=== PATIENT | male | born 1945 | race Caucasian/White ===

== ENCOUNTER 2025-04-07 06:55 | Day surgery (SDC) | payer MEDICARE, BC ==
[2025-04-07] VITALS (11 sets, daily range): BP systolic 98–161; BP diastolic 59–93; PULSE 40–100; RESP 14–20; TEMP 97.5; O2SAT 94–98
[~2025-04-07] VITALS: Ht 182.9 cm; Wt 99.2 kg
[~2025-04-07 06:55] MED LIST: ASPI-12 PO; NEBI5TAB9 PO; TAMS-55 PO; VITC500T PO
[2025-04-07] MEDS ORDERED: normal saline 1000ml 1,000 ML IV SCH (07:20)
[2025-04-07] MEDS ORDERED: fentaNYL/PF 50MCG/1 ML 2ML syringe IV ONE (07:20)
[2025-04-07] MEDS ORDERED: glycopyrrolate 0.2mg/ml inj IV ONE (07:20)
[2025-04-07] MEDS ORDERED: MIDAZolam 1mg/ml 10ml vial IV ONE (07:20)
[2025-04-07] MEDS ORDERED: NEBI10TA10 PO (07:28)
--- NOTE | 2025-04-07 07:28 | ELECTROCARDIOGRAPH REPORT ---
[facility] Test Date: 2025-04-07 Test Time: 07:24:15 Pat Name: CHENCHO ARRIAZA Department: [facility] Patient ID: [facility]-[id number] Room: Gender: M Territory Sales Representative: : 1945 Requested By: JINA HEARN Order Number: [id number] Reading MD: Dr. TONI Freeman Measurements Intervals [place] Rate: 101 P: 0 [place]: 0 QRS: -65 QRSD: 154 T: 43 QT: 391 QTc: 507 Interpretive Statements Atrial fibrillation RBBB and LAFB Probable left ventricular hypertrophy Electronically Signed On 04-07-2025 18:04:[address] TONI Freeman Please click the below link to view image of tracing.
[2025-04-07 08:13] LABS: MEAN PLATELET VOLUME 8.1 FL (7.4-10.4); RED CELL DISTRIBUTION WIDTH 14.4 % (11.5-14.5)
[2025-04-07 08:16] LABS: INR 1.1 INR
[2025-04-07 08:21] LABS: CREATININE 0.90 MG/DL (0.60-1.10); TOTAL CARBON DIOXIDE 26.9 MMOL/L (24-32); eCRCL 71 ML/MIN; eGFR 81 ML/MIN
[2025-04-07] MEDS: normal saline 1000ml 1,000 ML IV SCH (09:13)
[2025-04-07] MEDS: normal saline 1000ML IV soln IVB ONE (09:13)
[2025-04-07] MEDS ORDERED: midazolam 1 mg/ML 2ml injection ONE ×3 (09:21→10:50)
[2025-04-07] MEDS ORDERED: amiodarone 50MG/ML inj IV ONE (09:21)
[2025-04-07] MEDS ORDERED: atropine 0.1mg/ml 10ml syringe ONE (09:22)
[2025-04-07] MEDS ORDERED: fentaNYL/PF 50MCG/1 ML 2ML syringe ONE (09:22)
[2025-04-07 10:57] LABS: MONOCYTES % (MANUAL) 2.0 % (2-12); NEUTROPHILS % (MANUAL) 20.0 % (42-75); PLATELET ESTIMATE DECREASED
[2025-04-07] MEDS ORDERED: amiodarone/D5 360MG/200ML BAG 200 ML IV ONE (11:03)
[2025-04-07] MEDS ORDERED: amiodarone 150mg/dext, iso-os 100 ML IV ONE ×2 (11:10→11:12)
[2025-04-07] MEDS: magnesium sulf-water 2g/50mL 50 ML IV ONE (11:30)
--- NOTE | 2025-04-07 11:47 | CARDIOLOGY REPORT ---
DATE OF SERVICE: 04/07/2025 DICTATING PHYSICIAN: JINA HEARN DO PROCEDURE: DC cardioversion. PREPROCEDURAL DIAGNOSIS: Atrial fibrillation. POSTPROCEDURAL DIAGNOSIS: Atrial fibrillation cardioverted to sinus rhythm. DESCRIPTION OF PROCEDURE: The patient was sedated with fentanyl and Versed. He was then given one 200 joule shock resulting in conversion to sinus rhythm. COMPLICATIONS: There were no complications. PLAN: Ongoing medical therapy. FINAL DIAGNOSIS: Atrial fibrillation cardioverted to sinus rhythm. JINA HEARN DO TID: [id number] RECEIPT: [id number] /DEVANG
--- NOTE | 2025-04-07 12:11 | ELECTROCARDIOGRAPH REPORT ---
[facility] Test Date: 2025-04-07 Test Time: 12:07:36 Pat Name: CHENCHO ARRIAZA Department: [facility] Patient ID: [facility]-[id number] Room: Gender: M Account Liaison: DIGNA : 1945 Requested By: JINA HEARN Order Number: [id number] Reading MD: Dr. TONI Freeman Measurements Intervals [place] Rate: 41 P: 118 MI: 130 QRS: -51 QRSD: 158 T: -58 QT: 523 QTc: 432 Interpretive Statements Sinus bradycardia Right bundle branch block LVH with IVCD and secondary repol abnrm ST depr, consider ischemia, inferior leads Electronically Signed On 04-07-2025 18:05:[address] TONI Freeman Please click the below link to view image of tracing.
[2025-04-07] MEDS ORDERED: AMIO200T76 PO (12:12)
--- NOTE | 2025-04-07 14:27 | RADIOLOGY REPORT ---
Indication: gross hematuria; urogram/evaluate renal bladder Technique: CT axial images of the abdomen and pelvis are obtained with and without intravenous contrast. Coronal and sagittal reformats were obtained. Radiation Dose Information: CTDI volume is 31 mGy. Dose-length product is 4298 mGy*cm Comparison: None FINDINGS: Lung bases demonstrate atelectasis. Adrenal glands, spleen, pancreas unremarkable. No enhancing hepatic lesion. No CT evidence for cholelithiasis. The kidneys demonstrate no hydronephrosis, nephrolithiasis. Right renal cysts measuring 3.1 cm. Left renal peripelvic cysts. Stomach is partially distended. Small bowel loops are normal in caliber. Colonic diverticular disease. Moderate volume stool in the colon. No secondary signs for appendicitis. Abdominal aortic atherosclerotic disease. No retroperitoneal lymphadenopathy. Bladder partially distended. On the delayed views, there is a filling defect within the bladder. There is irregularity of the posterior bladder wall. Prostate measures 6.2 cm transversely. There appears to be contrast external to the prostatic urethra on the delayed urogram images. No free pelvic fluid. No inguinal lymphadenopathy. Small bilateral fat containing inguinal hernias. Moderate bilateral sacroiliac degenerative joint disease. Moderate to severe lumbar degenerative disc disease most pronounced at L5-S1. IMPRESSION: No hydronephrosis/ nephrolithiasis. Filling defect within the bladder as well as the right posterior bladder wall on the delayed urogram images. Recommend urology consultation for cystoscopy to exclude hematoma/ hemorrhage, mass and other lesions. Prostatomegaly. There is also contrast percolating outside the prostatic urethra. Recommend urology consultation for further evaluation. Aortic atherosclerotic disease. Colonic diverticular disease.
[2025-04-07 15:15] LABS: LYMPHOCYTES % (MANUAL) 78.0 % (21-51)
--- NOTE | 2025-04-07 20:13 | CARDIOLOGY REPORT ---
APPROVED REPORT EXAM: Transesophageal echocardiogram with color flow Doppler and Synchronized Cardioversion. Patient Location: CARDIAC [facility]HAIR[facility] Blood Pressure: 150/80 mmHg Heart Rate: 80's bpm Rhythm: Atrial Fibrillation Indications Atrial Fibrillation Check LA appendage TATUM probe passed by Dacia Beltran DO Master Rigger is Dacia Beltran DO No previous echo LEFT VENTRICLE LV appears normal in size and thickness. Overall systolic function appears severely reduced with global hypokinesis. LVEF is 30-35%. RIGHT VENTRICLE RV appears mildly dilated with normal contractility. ATRIA LA appears severely dilated. RA appears severely dilated. Left atrial appendage is visualized in multiple planes and appears normal without debris. Left upper pulmonary vein identified and isolated by 2D and color Doppler. MITRAL VALVE MV is thickened with no gross stenosis. Mild to moderate mitral regurgitation. TRICUSPID VALVE The tricuspid valve is normal in structure. Mild tricuspid regurgitation. PULMONIC VALVE The pulmonary valve is normal in structure. Trace pulmonic insufficiency. GREAT VESSELS Descending aorta is normal in caliber. PERICARDIUM There is no pericardial effusion.
== END 2025-04-07 14:00 | disposition home or self-care (01) ==
LOC: SSTAY O 06:55
PROVIDERS: ATTEND Internal Medicine Cardiovascular Disease
DX: I48.91 Unspecified atrial fibrillation (principal); I45.2 Bifascicular block; I10 Essential (primary) hypertension; Z79.899 Other long term (current) drug therapy; Z90.49 Acquired absence of other specified parts of digestive tract; Z96.651 Presence of right artificial knee joint; Z98.890 Other specified postprocedural states
CPT/HCPCS: 36415; 74178; 80048; 83735; 85025; 85610; 92960; 93005; 93325; C8925; J0282; J0461; J2250; J3010; J7030; Q9967; Z7610; 85007; 93312; 99152